=== PATIENT | male | born 1965 | race Caucasian/White ===

== ENCOUNTER 2023-05-17 07:18 | Day surgery (SDC) | payer OTHER ==
--- NOTE | 2023-05-15 11:58 | EKG ---
Test Date: 2023-05-14 Test Time: 12:11:57 [employer] Machine Tender: DEVAN MEASUREMENT RESULTS: Intervals: Rate: 68 MT: 128 QRSD: 86 QT: 370 QTc: 393 [place]: P: 42 MT: 128 QRS: 56 T: 44 INTERPRETIVE STATEMENTS: Normal sinus rhythm Normal ECG No previous ECG available for comparison Electronically Signed On 05-15-23 11:55:51 CDT by Allen Teixeira
[2023-05-17] MEDS ORDERED: Ringers Lactate 1,000 ML IV ONE (07:50)
[2023-05-17] MEDS ORDERED: propofoL 200 MG/20 ML VIAL IV ONE (09:13)
[2023-05-17] MEDS ORDERED: LIDOCAINE 1% MPF 5 ML VIAL ONE (09:13)
[2023-05-17 10:15] VITALS: TEMP 97
[2023-05-17 10:22] VITALS: BP 123/71; O2SAT 99
== END 2023-05-17 10:18 | disposition home or self-care (01) ==
LOC: OR 07:18
PROVIDERS: ATTEND Surgery
PROC: 0DBN8ZX Excision of Sigmoid Colon, Via Natural or Artificial Opening Endoscopic, Diagnostic (ICD-10-PCS; principal; 2023-05-17 08:45)
DX: Z12.11 Encounter for screening for malignant neoplasm of colon (principal); D12.5 Benign neoplasm of sigmoid colon; F17.210 Nicotine dependence, cigarettes, uncomplicated; E78.00 Pure hypercholesterolemia, unspecified
CPT/HCPCS: 93005; 80048; 36415; 88305; 45380; J2704; J2001; J7120